=== PATIENT | female | born 1995 | race Caucasian/White ===

== ENCOUNTER → 2018-03-15 | Outpatient (CLI) | payer BC ==
[2018-03-18 12:01] LABS: Crab IgE <0.35 kU/L (<0.35); Crab IgE Class CLASS 0; Lobster IgE <0.35 kU/L (<0.35); Lobster IgE Class CLASS 0
== END | disposition home or self-care (01) ==
LOC: LABWHC1 13:39
PROVIDERS: ATTEND Allergy & Immunology
DX: L20.9 Atopic dermatitis, unspecified (principal)
CPT/HCPCS: 36415; 86003

== ENCOUNTER → 2022-11-22 | Outpatient (CLI) | payer OTHER ==
[2022-11-22 18:30] LABS: Thyroid Peroxidase Antibodies 18.5 U/mL (0.0-33.0)
[2022-11-22 18:32] LABS: T4, Free (Free Thyroxine) 1.06 ng/dL (0.800-1.800)
[2022-11-23 14:29] LABS: Almond IgE <0.10 kU/L (<0.10); Almond IgE Class CLASS 0
[2022-11-23 14:30] LABS: Cashew IgE <0.10 kU/L (<0.10); Cashew IgE Class CLASS 0; Crab IgE <0.10 kU/L (<0.10); Crab IgE Class CLASS 0; Pecan IgE <0.10 kU/L (<0.10); Pecan IgE Class CLASS 0; Pistachio IgE Class CLASS 0
[2022-11-23 14:31] LABS: Banana IgE Class CLASS 3; Latex IgE Class CLASS 0/1; Lobster IgE <0.10 kU/L (<0.10); Lobster IgE Class CLASS 0
[2022-11-24 00:01] LABS: Egg White IgE <0.10 kU/L; Peanut IgE <0.10 kU/L; Shrimp IgE <0.10 kU/L; Walnut IgE (Food) <0.10 kU/L
== END | disposition home or self-care (01) ==
LOC: LABWHC1 12:37
PROVIDERS: ATTEND Allergy & Immunology
DX: E04.9 Nontoxic goiter, unspecified (principal); T78.3XXA Angioneurotic edema, initial encounter
CPT/HCPCS: 36415; 84439; 84443; 86003; 86376; 86800

== ENCOUNTER → 2022-11-29 | Outpatient (CLI) | payer OTHER ==
--- NOTE | 2022-11-29 08:45 | US ---
EXAMINATION TYPE: US thyroid st tissue head/neck DATE OF EXAM: 11/29/2022 COMPARISON: NONE CLINICAL HISTORY: E04.9 NONTOXIC GOITER. no previous imaging, no previous concerns GLAND SIZE: Right Lobe: 4.6 x 1.2 x 1.7 cm Overall Parenchyma: homogenous Left Lobe: 4.8 x 1.3 x 1.3 cm Overall Parenchyma: homogeneous Isthmus Thickness: 0.5 cm NODULES RIGHT: # of nodules measured on right: 1 1. 0.5 X 0.3 x 0.3 cm round simple cyst at the lateral mid pole. LEFT: # of nodules measured on left: 0 ISTHMUS: # of nodules measured in the isthmus: 0 Bilateral neck scanned, no evidence of lymphadenopathy. IMPRESSION: 1. Cyst within the right thyroid lobe. 2. No suspicious thyroid nodules.
== END | disposition home or self-care (01) ==
LOC: RADUSWWP 08:16
PROVIDERS: ATTEND Allergy & Immunology
DX: E04.1 Nontoxic single thyroid nodule (principal); E04.9 Nontoxic goiter, unspecified
CPT/HCPCS: 76536